=== PATIENT | male | born 1975 | race Caucasian/White ===

== ENCOUNTER 2017-03-07 18:02 | Emergency (ER) | payer MEDICAID ==
--- NOTE | 2017-03-07 18:47 | Emergency Department Record ---
History of Present Illness - General Chief complaint: Head Injury Stated complaint: LOG HIT PT HEAD /LACERATION TO LT CHECK/ Time Seen by Provider: 03/07/17 18:19 Source: Patient Mode of Arrival: Ambulatory Limitations: No limitations - History of Present Illness Initial comments: The patient was hit over the L face and forehead with a large log that fell off a truck and dropped about 6 feet. He had no LOC but does have a mild DELCID. There is a superficial laceration to the L zygomatic arch area. The patient denies any neck pain, visual changes, nausea, vomiting, or balance issues. His Td is UTD. Complaint: Head injury Onset/Timin -: Minutes(s) Mechanism of Injury: Other Location: Dental, Face, Frontal, Other Loss of Consciousness: No Previous Trauma to this Area: No Place: Outdoors Radiation: None Severity: Moderate Severity scale (1-10): 7 Consistency: Constant Provoking factors: None known Other Injuries: None Context: Other Associated Symptoms: Denies other symptoms - Related Data Previous Rx's Medication Instructions Recorded Amoxicillin 500Mg Capsule [Amoxil] 500 mg PO TID #21 tab 03/07/17 Allergies/Adverse reactions: Allergies Allergy/AdvReac Type Severity Reaction Status Date / Time Barbiturates Allergy RASH Verified 03/07/17 18:09 bee venom protein (honey bee) Allergy SWELLING Verified 03/07/17 18:09 (GENERAL) vancomycin Allergy SWELLING Verified 03/07/17 18:09 (GENERAL) Travel Screening - Travel/Exposure Within Last 30 Days Have you traveled within the last 30 days?: No - Travel Symptoms Symptom Screening: None Review of Systems Constitutional: Denies: Chills, Fever Eyes: Denies: Eye discharge ENT: Denies: Congestion, Throat pain Respiratory: Denies: Dyspnea Past Medical History - SOCIAL HISTORY Smoking Status: Never smoker Alcohol Use: None Drug Use: None - RESPIRATORY Hx Respiratory Disorders: No - CARDIOVASCULAR Hx Cardio Disorders: No - NEURO Hx Neuro Disorders: No - GI Hx GI Disorders: No - Hx Genitourinary Disorders: No - ENDOCRINE Hx Endocrine Disorders: No - MUSCULOSKELETAL Hx Musculoskeletal Disorders: Yes Comment:: T8 compression fx - PSYCH Hx Psych Problems: No - HEMATOLOGY/ONCOLOGY Hx Hematology/Oncology Disorders: No Family Medical History Any Significant Family History?: No Physical Exam - General General Appearance: Alert, Oriented x3, Cooperative, No acute distress - Head Head exam: Normocephalic. negative: Atraumatic, Normal inspection Head exam detail: Contusion Image of Face/Head: 1 - Contusion. 2 - Contusion with 1.5 cm superficial lac vertically oriented. - Eye Eye exam: Normal appearance, PERRL, EOMI - ENT ENT exam: TM's normal bilaterally, Other (There is no mandibular tenderness or malloclusion.). negative: Normal exam Teeth exam: Dental caries, Other (There are multiple teeth that are missing but with significant dental decay.). negative: Normal inspection Throat exam: Normal inspection. negative: Tonsillar erythema, Tonsillar exudate - Neck Neck exam: Normal inspection, Full ROM. negative: Tenderness (There is no posterior tenderness.) - Respiratory Respiratory exam: Normal lung sounds bilaterally. negative: Respiratory distress - Cardiovascular Cardiovascular Exam: Regular rate, Normal rhythm, Normal heart sounds - GI/Abdominal GI/Abdominal exam: Soft, Normal bowel sounds. negative: Tenderness - Neurological Neurological exam: Alert, Normal gait. negative: Abnormal gait, Motor sensory deficit Course Vital Signs 03/07/17 18:12 Temperature 98.1 F Pulse Rate 81 Respiratory 18 Rate Blood Pressure 142/90 Pulse Ox 99 - Reevaluation(s) Reevaluation #1: Procedure note: The L zygomatic arch lac was anesth. with 1 cc [place] 1%. The wound was prepped with betadine and lavaged with sterile saline. Four 5.0 nylon sutures were placed. There were no complications. 03/07/17 18:45 Reevaluation #2: The patient is doing very well at this time. He is waiting on xrays presently. His care will be turned over to Dr. Marcos at 19:00 due to shift change. 03/07/17 18:49 Disposition Prescriptions: Amoxicillin 500Mg Capsule [Amoxil] 500 mg PO TID #21 tab Forms: Patient Portal Access Quality - Quality Measures Quality Measures: N/A - Blood Pressure Screening View Details: Yes Does Patient Have Any of the Following: No Blood Pressure Classification: Hypertensive Reading Systolic Measurement: 142 Diastolic Measurement: 90 Screening for High Blood Pressure: < Pre-Hypertensive BP, F/U Documented > [ G8950] Pre-Hypertensive Follow-up Interventions: Referral to alternative/primary care provider.
--- NOTE | 2017-03-07 19:58 | Emergency Department Record ---
History of Present Illness - General Chief complaint: Head Injury Stated complaint: LOG HIT PT HEAD /LACERATION TO LT CHECK/ Time Seen by Provider: 03/07/17 18:19 Source: Patient Mode of Arrival: Ambulatory Limitations: No limitations - History of Present Illness Onset/Timin -: Minutes(s) Mechanism of Injury: Other Location: Dental, Face, Frontal, Other Loss of Consciousness: No Previous Trauma to this Area: No Place: Outdoors Radiation: None Severity: Moderate Severity scale (1-10): 7 Consistency: Constant Provoking factors: None known Other Injuries: None Context: Other Associated Symptoms: Denies other symptoms - Related Data Previous Rx's Medication Instructions Recorded Amoxicillin 500Mg Capsule [Amoxil] 500 mg PO TID #21 tab 03/07/17 Hydrocodone/Acetaminophen [[place] 1 each PO Q6HR #7 tablet 03/07/17 5-325 Tablet] Allergies/Adverse reactions: Allergies Allergy/AdvReac Type Severity Reaction Status Date / Time Barbiturates Allergy RASH Verified 03/07/17 18:09 bee venom protein (honey bee) Allergy SWELLING Verified 03/07/17 18:09 (GENERAL) vancomycin Allergy SWELLING Verified 03/07/17 18:09 (GENERAL) Travel Screening - Travel/Exposure Within Last 30 Days Have you traveled within the last 30 days?: No - Travel Symptoms Symptom Screening: None Review of Systems Constitutional: Denies: Chills, Fever Eyes: Denies: Eye discharge ENT: Denies: Congestion, Throat pain Respiratory: Denies: Dyspnea Past Medical History - SOCIAL HISTORY Smoking Status: Never smoker Alcohol Use: None Drug Use: None - RESPIRATORY Hx Respiratory Disorders: No - CARDIOVASCULAR Hx Cardio Disorders: No - NEURO Hx Neuro Disorders: No - GI Hx GI Disorders: No - Hx Genitourinary Disorders: No - ENDOCRINE Hx Endocrine Disorders: No - MUSCULOSKELETAL Hx Musculoskeletal Disorders: Yes Comment:: T8 compression fx - PSYCH Hx Psych Problems: No - HEMATOLOGY/ONCOLOGY Hx Hematology/Oncology Disorders: No Family Medical History Any Significant Family History?: No Physical Exam - General Limitations: No limitations Course Vital Signs 03/07/17 03/07/17 18:12 18:54 Temperature 98.1 F Pulse Rate 81 Pulse Rate [ 72 Pulse Ox Probe] Respiratory 18 18 Rate Blood Pressure 142/90 Blood Pressure 124/76 [Left Arm] Pulse Ox 99 98 Disposition Disposition: Discharge Clinical Impression: Laceration Head injury Qualifiers: Encounter type: initial encounter Qualified Code(s): S09.90XA - Unspecified injury of head, initial encounter Injury of face Qualifiers: Encounter type: initial encounter Qualified Code(s): S09.93XA - Unspecified injury of face, initial encounter Disposition: Home, Self-Care Condition: (1) Good Instructions: Head Injury (ED), Facial Laceration (ED) Additional Instructions: follow up with dentist clau. return sooner if worse. ice to sore spots Prescriptions: Hydrocodone/Acetaminophen [[place] 5-325 Tablet] 1 each PO Q6HR #7 tablet Amoxicillin 500Mg Capsule [Amoxil] 500 mg PO TID #21 tab Forms: Patient Portal Access Quality - Quality Measures Quality Measures: N/A - Blood Pressure Screening Does Patient Have Any of the Following: No Blood Pressure Classification: Hypertensive Reading Systolic Measurement: 142 Diastolic Measurement: 90 Screening for High Blood Pressure: < First Hypertensive BP, F/U Documented > [ G8950] First Hypertensive Follow-up Interventions: Follow-up with rescreen GT 1 day and LT 4 weeks.
[2017-03-07] MEDS: HYDROCODONE/APAP 5/325MG TABLET PO ONE (20:07)
--- NOTE | 2017-03-08 11:21 | CT SCAN REPORT ---
EXAM: HEAD CT WITHOUT CONTRAST HISTORY: PATIENT WAS LOADING WOOD AND A 100 POUND LOG FELL ABOUT FIVE FEET AND STRUCK THE PATIENT ON THE HEAD AND FACE, KNOCKING OUT THREE TO FOUR TEETH. TECHNIQUE: Axial CT scan of the head was performed without IV contrast. Comparison: None. Encounter: Initial. FINDINGS: No definite acute intracranial hemorrhage identified. No focal mass effect or midline shift apparent. No definite acute infarct or intracranial mass lesion is seen. There do appear to be some nasal bone fractures with overlying soft tissue swelling. Soft tissue swelling overlying the left frontal region as well with the underlying calvarium appearing intact. No air fluid levels evident in the paranasal sinuses which all appear essentially clear. The mastoids also appear clear. IMPRESSION: 1. NO DEFINITE ACUTE INTRACRANIAL HEMORRHAGE OR FOCAL MASS EFFECT EVIDENT. 2. NASAL BONE FRACTURES. 3. SOFT TISSUE SWELLING IN THE SCALP OF THE LEFT FRONTAL REGION WITH NO UNDERLYING CALVARIAL FRACTURE IN THIS REGION EVIDENT. JOB NUMBER: [id number] MTDD
--- NOTE | 2017-03-08 12:17 | RADIOLOGY REPORT ---
EXAM: FACIAL BONES HISTORY: PATIENT WAS LOADING WOOD AND A 100 POUND LOG FELL ABOUT FIVE FEET AND STRUCK THE PATIENT ON HIS HEAD AND FACE KNOCKING OUT THREE TO FOUR TEETH. TECHNIQUE: Five views of the facial bones were obtained. Comparison: No prior facial bone study. Encounter: Initial. FINDINGS: There is a fracture of the nasal bone with mild overlying soft tissue swelling. No additional facial bone fractures are identified. No definite abnormal opacification of the paranasal sinuses. There do appear to be some teeth absent and there are probably extensive dental caries in some of the remaining teeth. Dental consultation is suggested. IMPRESSION: 1. NASAL BONE FRACTURE. 2. NO OTHER FACIAL BONE FRACTURES IDENTIFIED. 3. NO ABNORMAL OPACIFICATION OF THE PARANASAL SINUS IS EVIDENT. 4. THERE ARE PROBABLY A COMBINATION OF SOME ABSENT TEETH AND EXTENSIVE DENTAL CARIES. DENTAL CONSULTATION IS SUGGESTED. JOB NUMBER: [id number] [facility]
== END 2017-03-07 20:08 | disposition home or self-care (01) ==
LOC: ER 18:02
DX: S01.412A Laceration without foreign body of left cheek and temporomandibular area, initial encounter (principal); S00.83XA Contusion of other part of head, initial encounter; S02.2XXA Fracture of nasal bones, initial encounter for closed fracture; K08.419 Partial loss of teeth due to trauma, unspecified class; R51 Headache; W20.8XXA Other cause of strike by thrown, projected or falling object, initial encounter
CPT/HCPCS: 12011; 70150; 70450; 99283; 99284